=== PATIENT | female | born 1960 | race Caucasian/White ===

== ENCOUNTER 2019-02-14 23:25 | Emergency (ER) | payer SELFPAY ==
--- NOTE | 2019-02-14 23:29 | ER Report ---
History and Physical Time Seen By MD: 23:27 HPI/ROS CHIEF COMPLAINT: Rash, itching HISTORY OF PRESENT ILLNESS: 56-year-old female presents ambulatory to the ER complaining of rash on her right neck and scalp. She was seen at [facility] last evening. She was prescribed Benadryl. Patient got much worse and was seen at urgent care. Here in [place] today. She received a Medrol Dosepak. She was medicated with Medrol 12 mg. He's been taking Benadryl 25 mg 2 in the last few hours without improvement. She notes the rash seems to have spread to her lower back. Patient states she was at the [facility] and adjacent park yesterday prior to the onset of this rash. Patient denies any infectious symptoms. She only notes itching. On visualization. There is gross erythema around the entire right side of her neck extending into her scalp anteriorly to her chest. Patient now notes a small area in her lower back in between her butt cheeks. She notes no throat swelling sensation, no difficulty breathing. She is unable to sleep secondary to the i tching. Allergies: Coded Allergies: No Known Drug Allergies (Unverified , 02/14/19) Home Meds Active Scripts Hydroxyzine Hcl (HYDROXYZINE HCL) 25 Mg Tablet, 1-2 TAB PO Q6H PRN for ITCHING, #30 Prov:JESÚS MAX DO 02/15/19 Reported Medications Venlafaxine Hcl (EFFEXOR XR) 75 Mg Cap.er.24h, 75 MG PO QDAY 02/15/19 Atorvastatin Calcium (LIPITOR) 10 Mg Tablet, 1 TAB PO QDAY, TAB 02/15/19 Amlodipine Besylate (NORVASC) 5 Mg Tablet, 1 TAB PO QDAY, TAB 02/15/19 Reviewed Nurses Notes: Yes Old Medical Records Reviewed: Yes Constitutional Vital Sign - Last 24 Hours 02/14/19 02/14/19 02/14/19 02/15/19 23:36 23:37 23:55 00:00 Temp 98.4 Pulse 103 95 Resp 15 B/P (MAP) 196/98 (130) 196/98 153/87 (109) Pulse Ox 93 92 Physical Exam General appearance: Alert no distress. Vital signs stable, afebrile, blood pressure mildly elevated Respiratory: Chest is non tender, lungs are clear to auscultation. Cardiac: Regular rate and rhythm Skin: Visualization of the skin reveals gross erythema not discrete hives and involves the entire right side of the neck, there is a small area in the lower back in the midline DIFFERENTIAL DIAGNOSIS: After history and physical exam differential diagnosis was considered for contact dermatitis, allergic reaction, anaphylaxis Medical Decision Making ED Course/Re-evaluation ED Course Patient was admitted to an examination room. H&P was done. The differential diagnosis was considered. Patient with worsening of her rash. Patient's on Medrol Dosepak now. She is on maximum medical therapy. I did discuss the option of hydroxyzine with her. She was provided, 2 tablets to use instead of Benadryl. She is advised to continue with the Medrol Dosepak as prescribed. Decision to Disposition Date: Feb 15, 2019 Decision to Disposition Time: 00:08 Depart Departure Latest Vital Signs Vital Signs Date Time Temp Pulse Resp B/P (MAP) Pulse Ox O2 Delivery O2 Flow Rate FiO2 02/15/19 00:00 153/87 (109) 02/14/19 23:55 95 92 02/14/19 23:37 98.4 15 Impression: Primary Impression: Allergic reaction Additional Impression: Contact dermatitis Condition: Improved Disposition: HOME OR SELF-CARE New Scripts Hydroxyzine Hcl (HYDROXYZINE HCL) 25 Mg Tablet 1-2 TAB PO Q6H PRN for ITCHING, #30 Prov: JESÚS MAX DO 02/15/19 Patient Instructions: General Allergic Reaction (ED) Additional Instructions: Try hydroxyzine 25 mg 1-2 tablets every 6 hours instead of Benadryl to help relieve the itching Follow-up with field associate if in a larger city Problem Qualifiers Primary Impression: Allergic reaction Encounter type: initial encounter Qualified Codes: T78.40XA - Allergy, unspecified, initial encounter Additional Impression: Contact dermatitis Contact dermatitis type: allergic Contact dermatitis trigger: unspecified trigger Qualified Codes: L23.9 - Allergic contact dermatitis, unspecified cause JESÚS MAX DO Feb 14, 2019 23:29
[2019-02-15] VITALS: BP 153/87
[2019-02-15] MEDS ORDERED: hydrOXYzine 25 MG TAB TH 2 TAB/BOTTLE PO ONE (00:10)
[2019-02-15] MEDS ORDERED: HYDR-4225 PO (00:12)
[2019-02-15] MEDS ORDERED: VENL75CA58 PO (02:21)
[2019-02-15] MEDS ORDERED: ATOR10TA24 PO (02:21)
[2019-02-15] MEDS ORDERED: AMLO-101 PO (02:21)
== END 2019-02-15 00:18 | disposition home or self-care (01) ==
LOC: ER 23:55
DX: T78.40XA Allergy, unspecified, initial encounter (principal); L23.9 Allergic contact dermatitis, unspecified cause
CPT/HCPCS: 99283